=== PATIENT | female | born 1995 | race Asian ===

== ENCOUNTER 2024-05-19 00:56 | Emergency (ER) | payer BC ==
[~2024-05-19] VITALS: Ht 154.9 cm; Wt 43.5 kg
[2024-05-19 01:29] VITALS: BP_SYST 123; PULSE 100; RESP 18; TEMP 97.4; O2SAT 98
[2024-05-19] MEDS ORDERED: ONDANSETRON HCL 4 MG/2 ML VIAL IVP ONE (01:30)
[2024-05-19] MEDS: NACL 0.9% 1,000 ML IV ONE (01:49)
[2024-05-19 03:31] LABS: CREATININE 0.59 mg/dL (0.55-1.30); POTASSIUM 3.9 mmol/L (3.5-5.1)
[2024-05-19 03:32] LABS: ALBUMIN 3.9 g/dL (3.4-4.8); BILIRUBIN,DIRECT 0.1 mg/dL (0.0-0.3); TOTAL BILIRUBIN 0.3 mg/dL (0.0-1.0); TOTAL PROTEIN, SERUM 8.4 g/dL (6.4-8.3)
[2024-05-19 03:33] LABS: BASOPHILS % (AUTO) 0.1 % (0.0-2.0); EOSINOPHILS % (AUTO) 0.1 % (0.0-4.0); HEMOGLOBIN 13.7 g/dL (12.0-16.0); LYMPHOCYTES # (AUTO) 0.7 K/uL (1.0-5.5); LYMPHOCYTES % (AUTO) 3.3 % (20.5-51.5); MEAN CORPUSCULAR HEMOGLOBIN 30 pg (27-31); MEAN CORPUSCULAR HGB CONC 34 % (32-36); MEAN CORPUSCULAR VOLUME 88 fL (79.0-98.0); MONOCYTES # (AUTO) 0.8 K/uL (0.0-1.0); MONOCYTES % (AUTO) 3.9 % (1.7-9.3); NEUTROPHILS % (AUTO) 92.6 % (40.0-70.0); PLATELET COUNT (AUTO) 429 K/uL (130-430); RED BLOOD CELL COUNT(AUTO) 4.67 MIL/uL (4.2-6.2); RED CELL DISTRIBUTION WIDTH 13.7 % (9.0-15.0); WHITE BLOOD COUNT (AUTO) 20.5 K/uL (4.8-10.8)
[2024-05-19 05:08] VITALS: BP_SYST 91; PULSE 97; RESP 16; TEMP 98.8; O2SAT 98
== END 2024-05-19 05:05 | disposition home or self-care (01) ==
LOC: SED 00:56
DX: K29.00 Acute gastritis without bleeding (principal); R10.10 Upper abdominal pain, unspecified; R11.2 Nausea with vomiting, unspecified; Z88.5 Allergy status to narcotic agent
CPT/HCPCS: 99284; 74176; 96360; 80076; 80048; 83690; 85025; 36415; 81025; J7030

== ENCOUNTER 2024-05-19 18:39 | Emergency (ER) | payer BC ==
[~2024-05-19] VITALS: Ht 154.9 cm; Wt 43.5 kg
[2024-05-19 19:17] VITALS: BP_SYST 104; PULSE 97; RESP 16; TEMP 97.7; O2SAT 100
[2024-05-19 20:05] LABS: ALBUMIN 3.3 g/dL (3.4-4.8); CALCIUM 8.5 mg/dL (8.4-11.0); CREATININE 0.56 mg/dL (0.55-1.30); POTASSIUM 3.6 mmol/L (3.5-5.1); TOTAL BILIRUBIN 0.7 mg/dL (0.0-1.0); TOTAL PROTEIN, SERUM 7.5 g/dL (6.4-8.3)
[2024-05-19 20:07] LABS: BILIRUBIN,URINE NEGATIVE (NEGATIVE); BLOOD, URINE 1+ (NEGATIVE); CLARITY/URINE CLEAR (CLEAR); COLOR,URINE YELLOW (YELLOW); GLUCOSE,URINE NEGATIVE (NEGATIVE); KETONES,URINE 1+ (NEGATIVE); LEUKOCYTE ESTERASE ,URINE NEGATIVE (NEGATIVE); NITRITE, URINE NEGATIVE (NEGATIVE); PH,URINE 7.5 (5.0-8.0); PROTEIN URINE NEGATIVE (NEGATIVE); UROBILINOGEN,URINE 0.2 (0.2-1.0)
[2024-05-19] MEDS: NACL 0.9% 1,000 ML IV ONE (20:09)
[2024-05-19 20:11] LABS: BASOPHILS % (AUTO) 0.2 % (0.0-2.0); EOSINOPHILS # (AUTO) 0.1 K/uL (0.0-0.4); EOSINOPHILS % (AUTO) 0.7 % (0.0-4.0); HEMOGLOBIN 12.1 g/dL (12.0-16.0); LYMPHOCYTES # (AUTO) 1.3 K/uL (1.0-5.5); MEAN CORPUSCULAR HEMOGLOBIN 30 pg (27-31); MEAN CORPUSCULAR HGB CONC 34 % (32-36); MEAN CORPUSCULAR VOLUME 89 fL (79.0-98.0); MONOCYTES # (AUTO) 0.6 K/uL (0.0-1.0); MONOCYTES % (AUTO) 4.8 % (1.7-9.3); NEUTROPHILS # (AUTO) 10.2 K/uL (1.8-7.7); NEUTROPHILS % (AUTO) 83.3 % (40.0-70.0); PLATELET COUNT (AUTO) 392 K/uL (130-430); RED BLOOD CELL COUNT(AUTO) 4.06 MIL/uL (4.2-6.2); RED CELL DISTRIBUTION WIDTH 13.7 % (9.0-15.0); WHITE BLOOD COUNT (AUTO) 12.3 K/uL (4.8-10.8)
[2024-05-19 20:39] LABS: BACTERIA,URINE RARE /HPF (None Seen); BARBITURATE, URINE NEGATIVE (NEG <=200); BENZODIAZEPINE, URINE NEGATIVE (NEG <=150); CANNABINOID, URINE NEGATIVE (NEG <=50); COCAINE, URINE NEGATIVE (NEG <=150); METHAMPHETAMINES SCREEN,URINE NEGATIVE (NEG <=500); PHENCYCLIDINE SCREEN,URINE NEGATIVE (NEG <=25); URINE AMPHETAMINE NEGATIVE (NEG <=500); URINE METHADONE NEGATIVE (NEG <=200)
[2024-05-19 20:40] LABS: OPIATE, URINE NEGATIVE (NEG <=100); UR TRICYCLIC ANTIDEPRESSANTS NEGATIVE (NEG <=300); URINE OXYCODONE SCREEN NEGATIVE (NEG <=100)
[2024-05-19] MEDS: KETOROLAC TROMETHAMINE 30 MG VIAL IVP ONE (20:45)
[2024-05-19 22:25] VITALS: BP_SYST 99; PULSE 98; RESP 16; TEMP 97.7; O2SAT 100
== END 2024-05-19 22:25 | disposition home or self-care (01) ==
LOC: SED 18:39
DX: R10.30 Lower abdominal pain, unspecified (principal); R11.2 Nausea with vomiting, unspecified; Z88.5 Allergy status to narcotic agent
CPT/HCPCS: 99283; 96374; 96361; 80307; 80053; 81001; 83690; 85025; 36415; J1885; J7030; 81000; 81015